=== PATIENT | female | born 1980 | race Two or more races ===

== ENCOUNTER 2023-09-29 06:48 | Day surgery (SDC) | payer OTHER ==
[2023-09-28 16:32] LABS: HEMATOCRIT 37.1 % (36.0-45.00); HEMOGLOBIN 12.5 g/dL (12.0-15.00); MEAN CELL VOLUME 81.5 fL (80.00-100.00); MEAN CORPUSCULAR HEMOGLOBIN 27.5 pg (27.00-32.0); MEAN CORPUSCULAR HGB CONC 33.7 g/dl (32.0-36.0); PLATELET COUNT 356 K/uL (150-450); RED BLOOD COUNT 4.55 M/uL (4.00-6.00); RED CELL DISTRIBUTION WIDTH 15.6 % (11.5-14.5)
[2023-09-28 16:34] LABS: PH,URINE 6.5 (5.0-8.0); URINE APPEARANCE Clear; URINE BILIRRUBIN Negative (NEGATIVE); URINE BLOOD Negative; URINE COLOR Yellow; URINE GLUCOSE Negative (NEGATIVE); URINE KETONE Negative (NEGATIVE); URINE LEUKOCYTE Negative; URINE NITRATE Negative; URINE PROTEIN Negative (NEGATIVE); URINE UROBILINOGEN 0.2 E.U./dl
[2023-09-28 16:36] LABS: URINE BACTERIA 206.6 uL (0.0-1933); URINE EPITHELIAL CELLS 2.1 uL (0.0-38.8); URINE RBC 5.8 uL (0.0-20.8); URINE WBC 1.5 uL (0.0-23.2)
[2023-09-28 16:56] LABS: INR 0.98; PARTIAL THROMBOPLASTIN TIME 28.1 SECONDS (22.0-34.0); PROTHROMBIN TIME 10.7 SECONDS (9.0-11.5)
[2023-09-28 17:38] LABS: ALBUMIN 3.7 gm/dL (3.4-5.0); BILIRUBIN TOTAL 0.36 mg/dL (0.3-1.2); CALCIUM 9.2 mg/dL (8.5-10.1); CREATININE SERUM 0.8 mg/dL (0.55-1.02); GFR 78.28; GLOBULINA 4.1 G/DL (2.4-3.5); POTASSIUM 3.83 mEq/L (3.5-5.1); TOTAL PROTEIN 7.8 gm/dL (6.4-8.2)
[2023-09-28 18:16] LABS: RH POSITIVE
[~2023-09-29 06:48] MED LIST: FOLIC ACID0.8 M1 PO; IRON159 MG PO; SUPER-D3+ SOFT1 EACH PO
[2023-09-29] MEDS ORDERED: POVIDONE-IODINE 118 ML BOTT TOP ONE (14:53)
[2023-09-29] MEDS ORDERED: CEFAZOLIN SODIUM 1,000 MG VIAL ONE (14:53)
[2023-09-29] MEDS ORDERED: METHYLERGONOVINE MALEATE 0.2 MG/ML AMPUL ONE (16:16)
[2023-09-29] MEDS ORDERED: MORGIDOX100 MG PO (16:23)
[2023-09-29] MEDS ORDERED: IBU600 MG PO (16:23)
== END 2023-09-29 18:30 | disposition home or self-care (01) ==
LOC: CIR.AMB 06:48
PROVIDERS: ATTEND Obstetrics & Gynecology
DX: O02.1 Missed abortion (principal); G35 Multiple sclerosis